=== PATIENT | male | born 1960 | race African-American/Black ===

== ENCOUNTER 2018-08-05 15:22 | Emergency (ER) | payer OTHER ==
[~2018-08-05] VITALS: Ht 188 cm; Wt 90.7 kg
[2018-08-05 16:44] LABS: ABSOLUTE NEUTROPHILS 5.3 thou/uL (1.4-8.2); BASOPHILS 0.8 % (0.0-2.0); EOSINOPHILS 1.1 % (0.0-3.0); HEMOGLOBIN 14.7 gm/dL (14.0-18.0); LYMPHOCYTES 23.2 % (24.0-44.0); MCH 25.2 pg (26.0-34.0); MCHC 33.3 g/dL (28.0-37.0); MCV 75.5 fL (80.0-100.0); MONOCYTES 9.9 % (1.0-8.0); PLATELET COUNT 124 thou/uL (150-400); RBC 5.83 mil/uL (4.50-6.00); WBC 8.2 thou/uL (4.0-11.0)
[2018-08-05 16:55] LABS: ANION GAP 8 mmol/L (7-16); BUN 21 mg/dL (7-18); CALCIUM 9.3 mg/dL (8.5-10.1); CHLORIDE 103 mmol/L (98-107); CO2 29 mmol/L (21-32); CREATININE 1.2 mg/dL (0.7-1.3); GLUCOSE 113 mg/dL (74-106); POTASSIUM 3.2 mmol/L (3.5-5.1); SODIUM 140 mmol/L (136-145); TROPONIN-I <0.06 ng/mL (<0.06)
[2018-08-05] MEDS ORDERED: KLOR-CON 1010 MEQ PO (18:09)
[2018-08-05 18:36] VITALS: BP 156/79
--- NOTE | 2018-08-07 21:48 | EKG ---
[place] [address] [facility] [place] [address] ELECTROCARDIOGRAM REPORT Name: ANDREA SIMON Room #: [facility] Carlos Enrique#: [id number] Admission: 08/05/18 Attend Phys: Discharge: 08/05/18 Date of : 58 Report #: [id number] THIS REPORT FOR: //name// [facility] ED Test Date: 2018-08-05 Test Time: 16:34:44 Pat Name: ANDREA SIMON Department: Room: Gender: Nc Manager: [facility] : 1960 Requested By: Reji Rodrigez Order Number: [id number] MD: Leo Berkowitz Measurements Intervals [place] Rate: 73 P: 54 AK: 166 QRS: -23 QRSD: 91 T: 58 QT: 389 QTc: 429 Interpretive Statements Sinus rhythm Atrial premature complex Probable left atrial enlargement Borderline left axis deviation Borderline repolarization abnormality No previous ECG available for comparison Electronically Signed On 08-07-2018 21:48:48 [employer] SALES [employer]SULTANT by Leo Berkowitz [email or web address] <ELECTRONICALLY SIGNED> By: Leo Berkowitz MD 08/07/18 2148 1634 1634 Leo Berkowitz MD /SAM
== END 2018-08-05 18:38 | disposition home or self-care (01) ==
LOC: ER 15:22
PROVIDERS: Emergency Medicine
DX: R00.2 Palpitations (principal); I10 Essential (primary) hypertension; E11.9 Type 2 diabetes mellitus without complications

== ENCOUNTER 2018-12-26 00:36 | Emergency (ER) | payer OTHER ==
[~2018-12-26] VITALS: Ht 177.8 cm; Wt 112.5 kg
[~2018-12-26 00:36] MED LIST: KLOR-CON 1010 MEQ PO
[2018-12-26 00:38] VITALS: BP 148/92
[2018-12-26] MEDS ORDERED: KEFLEX500 M1 PO (01:15)
== END 2018-12-26 01:25 | disposition home or self-care (01) ==
LOC: ER 00:36
DX: L98.8 Other specified disorders of the skin and subcutaneous tissue (principal); E11.9 Type 2 diabetes mellitus without complications; I10 Essential (primary) hypertension

== ENCOUNTER → 2019-03-16 | Outpatient (CLI) | payer OTHER ==
[~2019-03-16] MED LIST changes: +KEFLEX500 M1 PO
--- NOTE | 2019-03-16 11:18 | 2DMMODE ---
[facility] [employer] [address] 2 D/M-MODE ECHOCARDIOGRAM Name: ANDREA SIMON Room #: REG [facility]#: [id number] Admission: 03/16/19 Attend Phys: Kannan Buenrostro MD Discharge: Date of : 58 Date of Service: 03/16/19 1118 Report #: [id number] THIS REPORT FOR: //name// APPROVED REPORT Study performed: 03/16/2019 09:36:04 EXAM: Comprehensive 2D, Doppler, and color-flow Echocardiogram Patient Location: Out-Patient Room #: Echo lab 2 Status: routine BSA: 2.32 HR: 70 bpm BP: 132/94 mmHg Rhythm: NSR Other Information Study Quality: Good Indications Palpitations Hypertension/HDD 2D Dimensions RVDd: 32.33 mm IVSd: 14.82 (7-11mm) LVOT Diam: 17.85 (18-24mm) LVDd: 54.11 mm PWd: 14.77 (7-11mm) Ascending Ao: 28.56 (22-36mm) LVDs: 38.07 (25-40mm) Aortic Root: 29.61 mm IVC: 16.00 mm Volumes Left Atrial Volume (Systole) Single Plane 4CH: 38.07 mL Single Plane 2CH: 44.18 mL LA ESV Index: 19.00 mL/m2 Aortic Valve AoV Peak Caio.: 1.21 m/s AO Peak Gr.: 5.86 mmHg LVOT Max P.41 mmHg LVOT Max V: 1.05 m/s TRACEY Vmax: 2.17 cm2 Mitral Valve E/A Ratio: 1.2 MV Decel. Time: 210.27 ms [facility] [address] [place] [address] 2 D/M-MODE ECHOCARDIOGRAM Name: ANDREA SIMON Room #: [facility]#: [id number] Admission: 03/16/19 Attend Phys: Kannan Buenrostro MD Discharge: Date of : 58 Date of Service: 03/16/19 1118 Report #: [id number] E Max Caio.: 0.98 m/s MV A Caio.: 0.80 m/s MV PHT: 60.98 ms IVRT: 96.89 ms Pulmonary Valve PV Peak Caio.: 0.95 m/s PV Peak Gr.: 3.64 mmHg Pulmonary Vein P Vein S: 0.44 m/s P Vein A: 0.20 m/s P Vein D: 0.42 m/s P Vein A Dur.: 110.7 msec P Vein S/D Ratio: 1.05 Left Ventricle The left ventricle is normal size. There is normal LV segmental wall motion. Moderate concentric left ventricular hypertrophy. The left ventricular systolic function is normal. The left ventricular ejection fraction is within the normal range. LVEF is 55-60%. Grade II - pseudonormal filling dynamics. Right Ventricle The right ventricle is normal size. The right ventricular systolic function is normal. Atria The left atrium size is normal. The right atrium size is normal. Aortic Valve The aortic valve is normal in structure. No aortic regurgitation is present. There is no aortic valvular stenosis. Mitral Valve The mitral valve is normal in structure. Trace mitral regurgitation. No evidence of mitral valve stenosis. Tricuspid Valve The tricuspid valve is normal in structure. There is no tricuspid valve regurgitation noted. Pulmonic Valve The pulmonary valve is normal in structure. Trace pulmonic regurgitation. Great Vessels The aortic root is normal in size. IVC is normal in size and [facility] [address] [place] [address] 2 D/M-MODE ECHOCARDIOGRAM Name: ANDREA SIMON Room #: REG [facility]#: [id number] Admission: 03/16/19 Attend Phys: Kannan Buenrostro MD Discharge: Date of : 58 Date of Service: 03/16/19 1118 Report #: [id number] collapses >50% with inspiration. Pericardium There is no pericardial effusion. <Conclusion> The left ventricle is normal size. Moderate concentric left ventricular hypertrophy. The left ventricular systolic function is normal. Grade II - pseudonormal filling dynamics. The right ventricle is normal size. The left atrium size is normal. The aortic valve is normal in structure. Trace mitral regurgitation. There is no tricuspid valve regurgitation noted. <ELECTRONICALLY SIGNED> By: Kannan Buenrostro MD 03/16/19 1118 1118 1118 Kannan Buenrostro MD /INF
--- NOTE | 2019-03-16 11:38 | EXE ---
[facility] [address] [place] [address] STRESS ECHOCARDIOGRAM Name: ANDREA SIMON Room #: REG Carlos Enrique#: [id number] Admission: 03/16/19 Attend Phys: Kannan Buenrostro MD Discharge: Date of : 58 Date of Service: 03/16/19 1137 Report #: [id number] THIS REPORT FOR: //name// APPROVED REPORT Study performed: 03/16/2019 10:10:29 Exam: Stress Echocardiogram Indication: Palpitations Patient Location: Out-Patient Stress Nurse: Dennise Amado RN Room #: Echo lab 2 Status: routine Ht: 5 ft 10 in HR: 70 bpm BP: 132/94 mmHg Rhythm: NSR Medical History Medical History: Diabetes, HTN Cardiac Risk Factors: HTN, DM Exercise History: Sedentary Procedure The patient underwent an Exercise Stress Test using the Seth Protocol. Blood pressure, heart rate, and EKG were monitored. An Echocardiogram was performed by industrial machine system technician in four stages in quad fashion. At peak stress, four selected images were obtained and placed side by side with resting images for comparison. Stress Test Details Stress Test: Exercise stress testing was performed using a Seth protocol. HR Resting HR: 70 bpm Max Heart Rate (APMHR): 161 bpm Max HR Achieved: 139 bpm Target HR (85% APMHR): 136 bpm % of APMHR: 86 Recovery HR: 85 bpm HR response to stress: Normal HR response to stress BP Resting BP: 132/94 mmHg Max BP: 200/100 mmHg Recovery BP: 148/100 mmHg BP response to stress: Normal blood pressure response to [facility] [address] [place] [address] STRESS ECHOCARDIOGRAM Name: ANDREA SIMON Room #: REG Carlos Enrique#: [id number] Admission: 03/16/19 Attend Phys: Kannan Buenrostro MD Discharge: Date of : 58 Date of Service: 03/16/19 1137 Report #: [id number] stress. ECG Resting ECG: Sinus Rhythm, nonspecific ST-T abnormalities Stress ECG: Sinus Rhythm, nonspecific ST-T abnormalities ST Change: Non-ischemic Clinical Reason for Termination: Maximal effort Exercise duration: 5 min 35 sec Highest Stage Achieved: Stage 2: 2.5 mph at 12% grade. Exercise capacity: 7.2 METs Overall Exercise Capacity for Age: Poor Pre-Stress Echo The resting Echocardiogram showed normal left ventricular contractility with an estimated Ejection Fraction of about >55%. The resting echocardiogram demonstrated normal wall motion in all wall segments. Normal wall motion in all segments on baseline images. Post-Stress Echo The stress Echocardiogram showed left ventricular contractility with an estimated Ejection Fraction of about 65-70%. Compared to rest, there were no stress-induced wall motion abnormalities. Normal augmentation of wall motion in all segments on post stress images. Clinical No clinical or ECG evidence for ischemia. Conclusion Clinical Response: Non-ischemic Exercise Capacity: Below Average Stress ECG Response: Non-ischemic Stress Echo Images: Non-ischemic The left ventricle is normal in size and wall thickness in both the rest and stress images. No prior study available for comparison. Other Information Study Quality: Good <Conclusion> [facility] [address] [place] [address] STRESS ECHOCARDIOGRAM Name: ANDREA SIMON Room #: REG [facility]#: [id number] Admission: 03/16/19 Attend Phys: Kannan Buenrostro MD Discharge: Date of : 58 Date of Service: 03/16/191136 Report #: [id number] The left ventricle is normal in size and wall thickness in both the rest and stress images. <ELECTRONICALLY SIGNED> By: Kannan Buenrostro MD 03/16/19 1137 36 36 Kannan Buenrostro MD /INF
== END ==
LOC: CV 09:09
DX: I11.9 Hypertensive heart disease without heart failure (principal); E11.9 Type 2 diabetes mellitus without complications

== ENCOUNTER 2019-04-15 22:28 | Emergency (ER) | payer OTHER ==
[~2019-04-15] VITALS: Ht 177.8 cm; Wt 115.7 kg
[2019-04-15 22:29] VITALS: BP 177/90
== END 2019-04-15 23:15 | disposition home or self-care (01) ==
LOC: ER 22:28
DX: M20.012 Mallet finger of left finger(s) (principal); E11.9 Type 2 diabetes mellitus without complications; I10 Essential (primary) hypertension

== ENCOUNTER 2019-08-14 16:27 | Emergency (ER) | payer OTHER ==
[~2019-08-14] VITALS: Ht 177.8 cm; Wt 122.5 kg
[2019-08-14] MEDS ORDERED: NORCO 5-325 TA1 EAC1 PO (17:51)
[2019-08-14 17:55] VITALS: BP 167/95
== END 2019-08-14 18:27 | disposition home or self-care (01) ==
LOC: ER 16:27
DX: S81.811A Laceration without foreign body, right lower leg, initial encounter (principal); I10 Essential (primary) hypertension; E11.9 Type 2 diabetes mellitus without complications; W10.8XXA Fall (on) (from) other stairs and steps, initial encounter; Y93.89 Activity, other specified; Y92.89 Other specified places as the place of occurrence of the external cause; Y99.8 Other external cause status

== ENCOUNTER 2019-08-17 20:54 | Emergency (ER) | payer OTHER ==
[~2019-08-17] VITALS: Ht 177.8 cm; Wt 122.5 kg
[~2019-08-17 20:54] MED LIST changes: +NORCO 5-325 TA1 EAC1 PO
[2019-08-17] MEDS ORDERED: HYDROCHLOROTHIA25 M2 PO (21:38)
[2019-08-17] MEDS ORDERED: AMLODIPINE BESY10 MG PO (21:38)
[2019-08-17] MEDS ORDERED: LISINOPRIL-HCT1 EAC1 PO (21:38)
[2019-08-17] MEDS ORDERED: TOPROL XL100 MG PO (21:38)
[2019-08-17] MEDS ORDERED: DOXAZOSIN MESYLA4 MG PO (21:39)
[2019-08-17] MEDS ORDERED: LISINOPRIL20 MG PO (21:39)
[2019-08-17] MEDS ORDERED: LIPITOR 40 MG T40 M1 PO (21:40)
[2019-08-17] MEDS ORDERED: LANTUS SUBQ (21:41)
[2019-08-17] MEDS ORDERED: HUMALOG100 UNIT/1 (21:42)
[2019-08-17] MEDS ORDERED: KEFLEX500 M1 PO (21:43)
[2019-08-17 21:56] VITALS: BP 174/87
== END 2019-08-17 22:00 | disposition home or self-care (01) ==
LOC: ER 20:54
DX: L03.115 Cellulitis of right lower limb (principal); E11.9 Type 2 diabetes mellitus without complications; I10 Essential (primary) hypertension; Z79.4 Long term (current) use of insulin

== ENCOUNTER → 2019-09-05 | Outpatient (CLI) | payer OTHER ==
[~2019-09-05] MED LIST changes: +AMLODIPINE BESY10 MG PO; +DOXAZOSIN MESYLA4 MG PO; +HUMALOG100 UNIT/1; +HYDROCHLOROTHIA25 M2 PO; +LANTUS SUBQ; +LIPITOR 40 MG T40 M1 PO; +LISINOPRIL-HCT1 EAC1 PO; +LISINOPRIL20 MG PO; +TOPROL XL100 MG PO
== END ==
LOC: HYPER 08:23
DX: E11.622 Type 2 diabetes mellitus with other skin ulcer (principal); L97.812 Non-pressure chronic ulcer of other part of right lower leg with fat layer exposed; S80.811A Abrasion, right lower leg, initial encounter; S81.811A Laceration without foreign body, right lower leg, initial encounter; S80.11XA Contusion of right lower leg, initial encounter; L03.115 Cellulitis of right lower limb; E11.51 Type 2 diabetes mellitus with diabetic peripheral angiopathy without gangrene; E11.39 Type 2 diabetes mellitus with other diabetic ophthalmic complication; H40.9 Unspecified glaucoma; E66.09 Other obesity due to excess calories; E78.5 Hyperlipidemia, unspecified; I10 Essential (primary) hypertension; R60.0 Localized edema; K21.9 Gastro-esophageal reflux disease without esophagitis; Z79.4 Long term (current) use of insulin; Z87.891 Personal history of nicotine dependence; Z68.38 Body mass index [BMI] 38.0-38.9, adult; W19.XXXA Unspecified fall, initial encounter; Y93.89 Activity, other specified; Y92.89 Other specified places as the place of occurrence of the external cause; Y99.8 Other external cause status

== ENCOUNTER → 2019-09-11 | Outpatient (CLI) | payer OTHER | LOC: SJCVCIMAG 08:00 | DX: I73.9 Peripheral vascular disease, unspecified (principal); E11.649 Type 2 diabetes mellitus with hypoglycemia without coma; F17.200 Nicotine dependence, unspecified, uncomplicated ==

== ENCOUNTER → 2019-12-22 | Outpatient (CLI) | payer OTHER | LOC: SJCVCIMAG 07:50 | DX: I10 Essential (primary) hypertension (principal) ==

== ENCOUNTER → 2019-12-27 | Outpatient (CLI) | payer OTHER | LOC: SJCVCIMAG 12:38 | DX: I10 Essential (primary) hypertension (principal); E78.00 Pure hypercholesterolemia, unspecified; E11.649 Type 2 diabetes mellitus with hypoglycemia without coma; R07.9 Chest pain, unspecified; E78.5 Hyperlipidemia, unspecified; Z91.89 Other specified personal risk factors, not elsewhere classified ==

== ENCOUNTER → 2020-02-26 | Outpatient (CLI) | payer OTHER ==
[~2020-02-26] MED LIST changes: +CLONIDINE HCL0.2 M2 PO; +SUPER THERAVIT1 EACH PO
== END ==
LOC: SJCVCIMAG 14:12
PROVIDERS: ATTEND Internal Medicine Cardiovascular Disease
DX: I51.7 Cardiomegaly (principal)

== ENCOUNTER → 2020-03-12 | Outpatient (CLI) | payer OTHER ==
[~2020-03-12] MED LIST changes: +CENTRUM SILVER1 EACH PO; +CHLORTHALIDONE25 MG PO; +COREG25 M1 PO; +ZESTRIL40 MG PO
[2020-03-12 14:33] LABS: CALCIUM 8.5 mg/dL (8.5-10.1); CREATININE 1.3 mg/dL (0.7-1.3); POTASSIUM 3.5 mmol/L (3.5-5.1)
== END ==
LOC: LABMALL 13:28
PROVIDERS: ATTEND Internal Medicine Cardiovascular Disease
DX: I10 Essential (primary) hypertension (principal)

== ENCOUNTER → 2020-04-02 | Outpatient (CLI) | payer OTHER ==
[~2020-04-02] VITALS: Ht 177.8 cm; Wt 122.5 kg
[2020-04-02 08:58] VITALS: BP 167/94
[2020-04-02 09:14] LABS: CALCIUM 8.6 mg/dL (8.5-10.1); CREATININE 1.3 mg/dL (0.7-1.3); POTASSIUM 3.1 mmol/L (3.5-5.1)
--- NOTE | 2020-04-02 16:27 | EKG ---
[facility] [place] [address] ELECTROCARDIOGRAM REPORT Name: ALFREDANDREA Jameson Room #: REG [facility]#: [id number] Admission: 04/02/20 Attend Phys: Kannan Buenrostro MD Discharge: Date of : 58 Report #: [id number] THIS REPORT FOR: cc: Tyler Quijano MD, Neal A. MD Lundgren,Nicholas Sevilla MD [facility] ~ THIS REPORT FOR: //name// [facility] Test Date: 2020-04-02 Test Time: 08:50:55 Pat Name: ANDREA SIMON Department: Room: Gender: Hazardous Materials Tanker Driver: MILLER : 1960 Requested By: Kannan Buenrostro Order Number: [id number] MD: Nicholas Kapoor Measurements Intervals [place] Rate: 64 P: 51 SD: 180 QRS: -17 QRSD: 94 T: 160 QT: 430 QTc: 444 Interpretive Statements Sinus rhythm Borderline left axis deviation Abnormal R-wave progression, late transition Nonspecific T wave abnormality Compared to ECG 01/06/2020 11:43:41 No significant change was found Electronically Signed On 04-02-2020 16:27:51 CDT by Nicholas Kapoor [email or web address] <ELECTRONICALLY SIGNED> By: Nicholas Kapoor MD, [facility] 04/02/20 1627 0850 0850 Nicholas Kapoor MD, [facility] /EPI
== END | disposition home or self-care (01) ==
LOC: CATH 07:59
PROVIDERS: ATTEND Internal Medicine Cardiovascular Disease
DX: R07.9 Chest pain, unspecified (principal); R94.31 Abnormal electrocardiogram [ECG] [EKG]; R06.00 Dyspnea, unspecified; I10 Essential (primary) hypertension; E11.9 Type 2 diabetes mellitus without complications; E78.5 Hyperlipidemia, unspecified; Z98.890 Other specified postprocedural states; Z79.899 Other long term (current) drug therapy; Z79.4 Long term (current) use of insulin

== ENCOUNTER → 2020-07-01 | Outpatient (CLI) | payer OTHER ==
[2020-07-01 13:11] LABS: ALBUMIN 3.1 g/dL (3.4-5.0); CALCIUM 8.6 mg/dL (8.5-10.1); CREATININE 1.4 mg/dL (0.7-1.3); PHOSPHORUS 3.5 mg/dL (2.5-4.9)
[2020-07-01 13:14] LABS: POTASSIUM 3.7 mmol/L (3.5-5.1)
== END ==
LOC: LAB 12:30
PROVIDERS: ATTEND Internal Medicine Nephrology
DX: I12.9 Hypertensive chronic kidney disease with stage 1 through stage 4 chronic kidney disease, or unspecified chronic kidney disease (principal); N18.2 Chronic kidney disease, stage 2 (mild)

== ENCOUNTER 2020-08-06 08:00 | Emergency (ER) | payer OTHER ==
[~2020-08-06] VITALS: Ht 177.8 cm; Wt 125.2 kg
[2020-08-06 10:50] LABS: ABSOLUTE NEUTROPHILS 6.3 thou/uL (1.4-8.2); BASOPHILS 0.6 % (0.0-2.0); EOSINOPHILS 0.7 % (0.0-3.0); HEMATOCRIT 38.3 % (42.0-52.0); HEMOGLOBIN 11.9 gm/dL (14.0-18.0); LYMPHOCYTES 21.4 % (24.0-44.0); MCH 21.7 pg (26.0-34.0); MCV 70.2 fL (80.0-100.0); MONOCYTES 11.2 % (1.0-8.0); PLATELET COUNT 179 thou/uL (150-400); POLYS 66.1 % (36.0-66.0); RBC 5.45 mil/uL (4.50-6.00); RDW 18.2 % (10.5-14.5); WBC 9.5 thou/uL (4.0-11.0)
[2020-08-06 11:14] LABS: ANISOCYTOSIS 1+; MICROCYTES 2+; PLATELET ESTIMATE NORMAL
[2020-08-06 11:22] LABS: CALCIUM 9.4 mg/dL (8.5-10.1); CREATININE 1.5 mg/dL (0.7-1.3); POTASSIUM 4.3 mmol/L (3.5-5.1)
[2020-08-06 11:24] LABS: URIC ACID* 3.4 mg/dL (3.5-7.2)
[2020-08-06] MEDS ORDERED: MOBIC7.5 MG PO (12:08)
[2020-08-06 12:26] VITALS: BP 155/98
== END 2020-08-06 12:27 | disposition home or self-care (01) ==
LOC: ER 08:00
PROVIDERS: Emergency Medicine
DX: M25.521 Pain in right elbow (principal); E11.9 Type 2 diabetes mellitus without complications; I10 Essential (primary) hypertension; Z79.899 Other long term (current) drug therapy; Z79.4 Long term (current) use of insulin

== ENCOUNTER 2020-09-30 03:24 | Emergency (ER) | payer OTHER ==
[~2020-09-30] VITALS: Ht 180.3 cm; Wt 124.3 kg
[~2020-09-30 03:24] MED LIST changes: +MOBIC7.5 MG PO
[2020-09-30 03:26] VITALS: BP 159/87
[2020-09-30] MEDS ORDERED: NEURONTIN 300M300 M2 PO (03:34)
[2020-09-30] MEDS ORDERED: LISINOPRIL40 MG PO (03:35)
[2020-09-30] MEDS ORDERED: CARVEDILOL6.25 M1 PO (03:35)
[2020-09-30] MEDS ORDERED: ASA81BEC PO (03:37)
[2020-09-30 04:03] LABS: ABSOLUTE NEUTROPHILS 5.1 thou/uL (1.4-8.2); BASOPHILS 0.8 % (0.0-2.0); EOSINOPHILS 1.7 % (0.0-3.0); HEMATOCRIT 35.5 % (42.0-52.0); HEMOGLOBIN 11.2 gm/dL (14.0-18.0); LYMPHOCYTES 25.4 % (24.0-44.0); MCH 22.1 pg (26.0-34.0); MCHC 31.5 g/dL (28.0-37.0); MCV 70.1 fL (80.0-100.0); MONOCYTES 8.7 % (1.0-8.0); PLATELET COUNT 172 thou/uL (150-400); POLYS 63.4 % (36.0-66.0); RBC 5.06 mil/uL (4.50-6.00); RDW 17.6 % (10.5-14.5); WBC 8.1 thou/uL (4.0-11.0)
[2020-09-30 04:11] LABS: CALCIUM 8.6 mg/dL (8.5-10.1); CREATININE 1.5 mg/dL (0.7-1.3); POTASSIUM 3.4 mmol/L (3.5-5.1)
[2020-09-30 04:17] LABS: ALBUMIN 2.9 g/dL (3.4-5.0); MAGNESIUM 1.6 mg/dL (1.8-2.4); TOTAL BILIRUBIN 0.5 mg/dL (0.2-1.0); TOTAL PROTEIN 6.6 g/dL (6.4-8.2)
[2020-09-30] MEDS ORDERED: CYMBALTA30 MG PO (04:26)
[2020-09-30] MEDS ORDERED: ULTRAM 50MG TAB50 MG PO (04:26)
[2020-09-30 04:49] LABS: ANISOCYTOSIS 1+; HYPOCHROMASIA 2+; MICROCYTES 2+
== END 2020-09-30 04:57 | disposition home or self-care (01) ==
LOC: ER 03:24
PROVIDERS: Emergency Medicine
DX: E11.40 Type 2 diabetes mellitus with diabetic neuropathy, unspecified (principal); E87.6 Hypokalemia; N28.9 Disorder of kidney and ureter, unspecified; I10 Essential (primary) hypertension; E78.5 Hyperlipidemia, unspecified; Z79.899 Other long term (current) drug therapy; Z79.4 Long term (current) use of insulin

== ENCOUNTER 2020-10-20 10:10 | Emergency (ER) | payer OTHER ==
[~2020-10-20] VITALS: Ht 180.3 cm; Wt 122.5 kg
[~2020-10-20 10:10] MED LIST changes: +ASA81BEC PO; +CARVEDILOL6.25 M1 PO; +CYMBALTA30 MG PO; +LISINOPRIL40 MG PO; +NEURONTIN 300M300 M2 PO; +ULTRAM 50MG TAB50 MG PO
[2020-10-20] MEDS ORDERED: PREGABALIN50 MG PO (12:29)
[2020-10-20 12:38] VITALS: BP 153/80
== END 2020-10-20 12:39 | disposition home or self-care (01) ==
LOC: ER 10:10
DX: R04.0 Epistaxis (principal); I10 Essential (primary) hypertension; E11.9 Type 2 diabetes mellitus without complications; E78.5 Hyperlipidemia, unspecified; Z79.4 Long term (current) use of insulin; Z79.899 Other long term (current) drug therapy; Z79.82 Long term (current) use of aspirin

== ENCOUNTER 2020-10-21 05:54 | Emergency (ER) | payer OTHER ==
[~2020-10-21] VITALS: Ht 177.8 cm; Wt 123.8 kg
[~2020-10-21 05:54] MED LIST changes: +PREGABALIN50 MG PO
[2020-10-21 06:01] VITALS: BP 145/88
[2020-10-21 06:31] LABS: HEMATOCRIT 37.7 % (42.0-52.0); HEMOGLOBIN 11.9 gm/dL (14.0-18.0); MCH 22.1 pg (26.0-34.0); MCHC 31.5 g/dL (28.0-37.0); RBC 5.38 mil/uL (4.50-6.00); RDW 17.8 % (10.5-14.5)
== END 2020-10-21 06:50 | disposition home or self-care (01) ==
LOC: ER 05:54
PROVIDERS: Emergency Medicine
DX: R04.0 Epistaxis (principal); I10 Essential (primary) hypertension; E11.9 Type 2 diabetes mellitus without complications; E78.5 Hyperlipidemia, unspecified; Z79.899 Other long term (current) drug therapy; Z79.4 Long term (current) use of insulin

== ENCOUNTER → 2020-10-28 | Outpatient (CLI) | payer OTHER | LOC: MRI 13:46 | PROVIDERS: ATTEND Nurse Practitioner | DX: M47.26 Other spondylosis with radiculopathy, lumbar region (principal); M51.17 Intervertebral disc disorders with radiculopathy, lumbosacral region; M51.16 Intervertebral disc disorders with radiculopathy, lumbar region; M48.061 Spinal stenosis, lumbar region without neurogenic claudication ==

== ENCOUNTER → 2020-10-30 | Outpatient (CLI) | payer OTHER | LOC: SJCVCIMAG | PROVIDERS: ATTEND Internal Medicine Cardiovascular Disease | DX: I65.23 Occlusion and stenosis of bilateral carotid arteries (principal); I73.9 Peripheral vascular disease, unspecified; M79.661 Pain in right lower leg; M79.662 Pain in left lower leg ==

== ENCOUNTER 2020-11-22 12:56 | Emergency (ER) | payer OTHER ==
[~2020-11-22] VITALS: Ht 177.8 cm; Wt 124.3 kg
[2020-11-22 13:01] VITALS: BP 186/112
== END 2020-11-22 13:41 | disposition home or self-care (01) ==
LOC: ER 12:56
DX: I10 Essential (primary) hypertension (principal); E11.9 Type 2 diabetes mellitus without complications; Z20.822 Contact with and (suspected) exposure to COVID-19; Z79.4 Long term (current) use of insulin; Z79.899 Other long term (current) drug therapy

== ENCOUNTER → 2020-11-22 | Outpatient (CLI) | payer OTHER | LOC: LAB 14:11 | PROVIDERS: ATTEND Anesthesiology | DX: Z01.812 Encounter for preprocedural laboratory examination (principal); Z20.822 Contact with and (suspected) exposure to COVID-19 ==

== ENCOUNTER → 2020-12-20 | Outpatient (CLI) | payer OTHER ==
[~2020-12-20] VITALS: Ht 180.3 cm; Wt 126.9 kg
[~2020-12-20] MED LIST changes: +MEDROLDOSEPACK PO
[2020-12-20 09:24] VITALS: BP 161/92
--- NOTE | 2020-12-20 09:34 | NUR ---
Pain Clinic Assessment: 1. History of Osteoarthritis: DENIES History of Rheumatoid Arthritis: DENIES 2. Height: 5 ft. 11 in. 180.3 cm. Weight: 279.8 lb. oz. 126.917 kg. Patient's BMI: 39.0 3. Vital Signs: BP: 161/92 Pulse: 74 Resp: 18 Temp: 02 Sat: 99 ECG Mon: 4. Pain Intensity: 9 5. Fall Risk: Dizziness: N Needs help standing or walking: N Fallen in the last 3 months: N Fall risk comments: 6. Patient on Blood Thinner: None 7. History of Hypertension: Y 8. Opioid Therapy greater than 6 weeks: N Opiate Contract Signed: 9. Risk Assessment Tool Provided: 0-LPOW RISK 10. Functional Assessment Tool: 11. Recreational Drug Use: Never Drug Type: Tobacco Use: Never Smoker Tobacco Type: Amount or Packs/day: How Many Years: Alcohol Use: No Frequency: Quant:
== END ==
LOC: PAIN 07:13
PROVIDERS: ATTEND Anesthesiology Pain Medicine
DX: M47.27 Other spondylosis with radiculopathy, lumbosacral region (principal); E11.9 Type 2 diabetes mellitus without complications; I10 Essential (primary) hypertension; E78.5 Hyperlipidemia, unspecified; Z79.899 Other long term (current) drug therapy; Z79.891 Long term (current) use of opiate analgesic; Z79.4 Long term (current) use of insulin

== ENCOUNTER → 2020-12-27 | Outpatient (CLI) | payer OTHER ==
[~2020-12-27] VITALS: Ht 180.3 cm; Wt 128.8 kg
[2020-12-27 08:34] VITALS: BP 187/99
--- NOTE | 2020-12-27 08:39 | NUR ---
Pain Clinic Assessment: 1. History of Osteoarthritis: DENIES History of Rheumatoid Arthritis: DENIES 2. Height: 5 ft. 11 in. 180.3 cm. Weight: 284.0 lb. oz. 128.822 kg. Patient's BMI: 39.6 3. Vital Signs: BP: 187/99 Pulse: 74 Resp: 16 Temp: 02 Sat: 99 ECG Mon: 4. Pain Intensity: 10/WORKING 5. Fall Risk: Dizziness: N Needs help standing or walking: N Fallen in the last 3 months: N Fall risk comments: 6. Patient on Blood Thinner: None 7. History of Hypertension: Y 8. Opioid Therapy greater than 6 weeks: N Opiate Contract Signed: 9. Risk Assessment Tool Provided: 0-LPOW RISK 10. Functional Assessment Tool: 11. Recreational Drug Use: Never Drug Type: Tobacco Use: Never Smoker Tobacco Type: Amount or Packs/day: How Many Years: Alcohol Use: No Frequency: Quant:
== END | disposition home or self-care (01) ==
LOC: PAIN 07:16
PROVIDERS: ATTEND Anesthesiology Pain Medicine
DX: M54.16 Radiculopathy, lumbar region (principal); G89.29 Other chronic pain; I10 Essential (primary) hypertension; E11.9 Type 2 diabetes mellitus without complications; E78.5 Hyperlipidemia, unspecified; Z98.890 Other specified postprocedural states; Z79.899 Other long term (current) drug therapy; Z20.822 Contact with and (suspected) exposure to COVID-19; Z79.82 Long term (current) use of aspirin

== ENCOUNTER 2021-03-12 00:35 | Emergency (ER) | payer OTHER ==
[~2021-03-12] VITALS: Ht 177.8 cm; Wt 123.4 kg
[~2021-03-12 00:35] MED LIST changes: +ADULT LOW DOSE81 MG; +FISHOIL; +FLEXERIL PO; +IBUPROFEN 800800 MG PO; +LANTUS; +LISINOPRIL20 MG; +NORCO 5-325 TA1 EACH PO; +NORCO5 PO; +NORVASC5 MG PO; +NOVOLOG100 UNIT/1; +PREDNISONE50 MG PO
[2021-03-12] MEDS ORDERED: BUMEX2 MG PO (01:05)
[2021-03-12] MEDS ORDERED: CARVEDILOL25 MG PO (01:08)
[2021-03-12 01:39] LABS: ABSOLUTE NEUTROPHILS 6.2 thou/uL (1.4-8.2); BASOPHILS 0.9 % (0.0-2.0); EOSINOPHILS 2.9 % (0.0-3.0); HEMOGLOBIN 12.4 gm/dL (14.0-18.0); LYMPHOCYTES 18.6 % (24.0-44.0); MCH 22.4 pg (26.0-34.0); MCHC 32.6 g/dL (28.0-37.0); MCV 68.9 fL (80.0-100.0); MONOCYTES 12.2 % (1.0-8.0); PLATELET COUNT 180 thou/uL (150-400); POLYS 65.4 % (36.0-66.0); RBC 5.52 mil/uL (4.50-6.00); RDW 17.3 % (10.5-14.5); WBC 9.4 thou/uL (4.0-11.0)
[2021-03-12 01:42] LABS: ANION GAP 7 mmol/L (7-16); BUN 32 mg/dL (7-18); CALCIUM 8.2 mg/dL (8.5-10.1); CHLORIDE 103 mmol/L (98-107); CO2 33 mmol/L (21-32); GLUCOSE 100 mg/dL (74-106); SODIUM 143 mmol/L (136-145)
[2021-03-12 01:45] LABS: APTT 27.8 Seconds (24.5-32.8); INR 1.01
[2021-03-12 01:52] LABS: ALBUMIN 2.7 g/dL (3.4-5.0); SGOT 20 U/L (15-37); SGPT 24 U/L (30-65); TOTAL BILIRUBIN 0.5 mg/dL (0.2-1.0); TOTAL PROTEIN 6.7 g/dL (6.4-8.2); TROPONIN-I <0.06 ng/mL (<0.06)
[2021-03-12 02:47] VITALS: BP 156/81
--- NOTE | 2021-03-12 07:11 | EKG ---
[place] [address] [facility] [place] [address] ELECTROCARDIOGRAM REPORT Name: ANDREA SIMON [id number] Admission: 03/12/21 Attend Phys: Discharge: 03/12/21 Date of : 58 Report #: [id number] [facility] ED Test Date: 2021-03-12 Test Time: 01:21:16 Pat Name: ANDREA SIMON Department: Room: Gender: M Solar Installation Helper: : 1960 Requested By: Sukhwinder Grajeda Order Number: [id number] MD: Bao Hernandez Measurements Intervals [place] Rate: 74 P: 54 NM: 163 QRS: -30 QRSD: 100 T: 159 QT: 423 QTc: 470 Interpretive Statements Sinus rhythm Probable left atrial enlargement Left axis deviation Probable anteroseptal infarct, old Abnormal T, consider ischemia, lateral leads Compared to ECG 04/02/2020 08:50:55 Myocardial infarct finding now present Possible ischemia now present T-wave abnormality still present Electronically Signed On 03-12-2021 7:11:32 CDT by Bao Hernandez [email or web address] <ELECTRONICALLY SIGNED> By: Bao Hernandez MD, [facility] 03/12/21 07 012 012 Bao Hernandez MD, [facility] /EPI
== END 2021-03-12 02:47 ==
LOC: ER 00:35
PROVIDERS: Emergency Medicine
DX: I62.9 Nontraumatic intracranial hemorrhage, unspecified (principal); I12.9 Hypertensive chronic kidney disease with stage 1 through stage 4 chronic kidney disease, or unspecified chronic kidney disease; N18.9 Chronic kidney disease, unspecified; N17.9 Acute kidney failure, unspecified; Z20.822 Contact with and (suspected) exposure to COVID-19; E11.9 Type 2 diabetes mellitus without complications; E78.5 Hyperlipidemia, unspecified; G62.9 Polyneuropathy, unspecified; Z79.82 Long term (current) use of aspirin; Z79.4 Long term (current) use of insulin; Z79.899 Other long term (current) drug therapy

== ENCOUNTER → 2021-03-27 | Outpatient (CLI) | payer OTHER ==
[~2021-03-27] MED LIST changes: +BUMEX2 MG PO; +CARVEDILOL25 MG PO
[2021-03-27 11:43] LABS: HEMOGLOBIN 11.5 gm/dL (14.0-18.0); MCH 22.2 pg (26.0-34.0); MCHC 31.8 g/dL (28.0-37.0); MCV 69.6 fL (80.0-100.0); RBC 5.18 mil/uL (4.50-6.00); WBC 7.2 thou/uL (4.0-11.0)
[2021-03-27 11:50] LABS: URINE CREATININE-RANDOM* 67.9 mg/dL; URINE PROTEIN-RANDOM* 204.4 mg/dL (<11.9)
[2021-03-27 11:55] LABS: CALCIUM 8.2 mg/dL (8.5-10.1); CALCIUM 8.4 mg/dL (8.5-10.1); CREATININE 1.6 mg/dL (0.7-1.3); CREATININE 1.7 mg/dL (0.7-1.3); PHOSPHORUS 3.9 mg/dL (2.6-4.7); POTASSIUM 3.8 mmol/L (3.5-5.1)
== END ==
LOC: LAB 10:50
PROVIDERS: ATTEND Nurse Practitioner Adult Health
DX: N18.31 Chronic kidney disease, stage 3a (principal)

== ENCOUNTER 2021-04-18 10:03 | Emergency (ER) | payer OTHER ==
[~2021-04-18] VITALS: Ht 175.3 cm; Wt 122.5 kg
[2021-04-18 10:45] LABS: BASOPHILS 0.8 % (0.0-2.0); EOSINOPHILS 1.6 % (0.0-3.0); HEMATOCRIT 38.4 % (42.0-52.0); HEMOGLOBIN 12.3 gm/dL (14.0-18.0); MCH 21.9 pg (26.0-34.0); MCV 68.4 fL (80.0-100.0); MONOCYTES 10.9 % (1.0-8.0); PLATELET COUNT 224 thou/uL (150-400); POLYS 69.7 % (36.0-66.0); RBC 5.61 mil/uL (4.50-6.00); RDW 17.8 % (10.5-14.5)
[2021-04-18 10:57] LABS: ANION GAP 3 mmol/L (7-16); BUN 29 mg/dL (7-18); CHLORIDE 103 mmol/L (98-107); CO2 34 mmol/L (21-32); CREATININE 1.6 mg/dL (0.7-1.3); GLUCOSE 50 mg/dL (74-106); POTASSIUM 3.4 mmol/L (3.5-5.1); SODIUM 140 mmol/L (136-145)
[2021-04-18 11:08] LABS: DIRECT BILIRUBIN < 0.1 mg/dL (<0.1-0.2); LIPASE 133 U/L (73-393); SGOT 23 U/L (15-37); SGPT 25 U/L (30-65); TOTAL BILIRUBIN 0.5 mg/dL (0.2-1.0); TOTAL PROTEIN 7.2 g/dL (6.4-8.2)
[2021-04-18 12:05] LABS: ANISOCYTOSIS 1+; PLATELET ESTIMATE NORMAL
[2021-04-18 12:29] VITALS: BP 159/101
--- NOTE | 2021-04-18 14:54 | EKG ---
[place] [address] [facility] [place] [address] ELECTROCARDIOGRAM REPORT Name: ANDREA SIMON [facility] [id number] Admission: 04/18/21 Attend Phys: Discharge: 04/18/21 Date of : 58 Report #: [id number] [facility] ED Test Date: 2021-04-18 Test Time: 10:09:47 Pat Name: ANDREA ALFRED Department: Room: Gender: M Pool Technician: gustavo : 1960 Requested By: Chao Martines Order Number: [id number] MD: Bao Hernandez Measurements Intervals [place] Rate: 77 P: 45 MI: 165 QRS: -37 QRSD: 97 T: 124 QT: 392 QTc: 444 Interpretive Statements Sinus rhythm Probable left atrial enlargement Left ventricular hypertrophy Nonspecific T abnrm, anterolateral leads J Point elevation anterior leads Baseline wander in lead(s) I,II,aVR Compared to ECG 03/12/2021 01:21:16 Left ventricular hypertrophy now present ST (T wave) deviation now present Left-axis deviation no longer present T-wave abnormality no longer present Electronically Signed On 04-18-2021 14:54:36 CDT by Bao Hernandez [email or web address] <ELECTRONICALLY SIGNED> By: Bao Hernandez MD, [facility] 04/18/21 1454 1009 1009 Bao Hernandez MD, [facility] /EPI
== END 2021-04-18 12:30 | disposition home or self-care (01) ==
LOC: ER 10:03
PROVIDERS: Student in an Organized Health Care Education/Training Program
DX: E11.649 Type 2 diabetes mellitus with hypoglycemia without coma (principal); I10 Essential (primary) hypertension; E78.5 Hyperlipidemia, unspecified; Z86.73 Personal history of transient ischemic attack (TIA), and cerebral infarction without residual deficits

== ENCOUNTER → 2021-04-23 | Outpatient (CLI) | payer OTHER ==
[2021-04-23 16:27] LABS: ABSOLUTE NEUTROPHILS 4.7 thou/uL (1.4-8.2); BASOPHILS 0.6 % (0.0-2.0); EOSINOPHILS 1.6 % (0.0-3.0); HEMATOCRIT 36.5 % (42.0-52.0); HEMOGLOBIN 11.7 gm/dL (14.0-18.0); LYMPHOCYTES 23.5 % (24.0-44.0); MCH 21.9 pg (26.0-34.0); MCV 68.4 fL (80.0-100.0); MONOCYTES 13.6 % (1.0-8.0); PLATELET COUNT 191 thou/uL (150-400); POLYS 60.7 % (36.0-66.0); RBC 5.33 mil/uL (4.50-6.00); RDW 17.9 % (10.5-14.5); WBC 7.8 thou/uL (4.0-11.0)
[2021-04-23 16:35] LABS: PROT/CREAT RATIO 2.7; URINE CREATININE-RANDOM* 91.1 mg/dL; URINE PROTEIN-RANDOM* 247.2 mg/dL (<11.9)
[2021-04-23 16:39] LABS: ALBUMIN 2.7 g/dL (3.4-5.0); CALCIUM 8.4 mg/dL (8.5-10.1); CREATININE 1.7 mg/dL (0.7-1.3); PHOSPHORUS 3.6 mg/dL (2.6-4.7); POTASSIUM 3.7 mmol/L (3.5-5.1)
[2021-04-23 17:02] LABS: CALCIUM 8.3 mg/dL (8.5-10.1); CREATININE 1.6 mg/dL (0.7-1.3); PHOSPHORUS 3.8 mg/dL (2.5-4.9)
[2021-04-23 18:57] LABS: ANISOCYTOSIS 1+; HYPOCHROMASIA 1+; MICROCYTES 2+
== END ==
LOC: LAB 15:42
PROVIDERS: ATTEND Nurse Practitioner Adult Health
DX: N18.31 Chronic kidney disease, stage 3a (principal)

== ENCOUNTER → 2021-09-22 | Outpatient (CLI) | payer OTHER | LOC: SJCVCIMAG 12:42 | PROVIDERS: ATTEND Internal Medicine Cardiovascular Disease | DX: I34.0 Nonrheumatic mitral (valve) insufficiency (principal); I10 Essential (primary) hypertension ==